=== PATIENT | female | born 1945 | race Caucasian/White ===

== ENCOUNTER 2019-05-01 14:17 | Observation (INO) ==
[2019-05-01] MEDS ORDERED: Aspirin 81 MG TAB.CHEW PO ONE (14:25)
[2019-05-01] MEDS ORDERED: Isovue-370 500 ML BOTTLE IVP ONE (14:25)
[2019-05-01] MEDS ORDERED: Nitroglycerin 0.4 MG TAB.SUBL SL PRN ×2 (14:25→17:25)
[2019-05-01] MEDS ORDERED: HydrOXYzine 100 MG/2 ML VIAL IM ONE (14:51)
[2019-05-01 15:35] LABS: Basophils % 0.5 %; Eosinophils # 0.1 K/mcL (0.0-0.6); Eosinophils % 1.7 %; Hematocrit 43.5 % (35.3-44.9); Hemoglobin 13.3 g/dL (11.5-15.4); Immature Granulocytes % 0.2 % (0-4); Lymphocytes # 2.9 K/mcL (0.6-4.6); Lymphocytes % 35.5 %; Mean Corpuscular HGB Conc 30.6 g/dL (31.6-35.5); Mean Corpuscular Hemoglobin 27.9 pg (28.0-33.3); Mean Corpuscular Volume 91.2 fL (83.0-100.0); Mean Platelet Volume 10.3 fL (9.4-12.4); Monocytes # 0.6 K/mcL (0.0-1.3); Monocytes % 7.3 %; Neutrophils # 4.5 K/mcL (1.6-8.9); Platelet Count 311 K/mcL (140-400); Red Blood Count 4.77 M/mcL (3.82-4.97); Red Cell Distribution Width 13.1 % (11.5-14.5); Segmented Neutrophils % 54.8 %; White Blood Count 8.1 K/mcL (4.3-11.1)
[2019-05-01 15:55] LABS: BUN/Creatinine Ratio 14 (6-26); Blood Urea Nitrogen 9 mg/dL (8-23); Calcium 9.4 mg/dL (8.6-10.3); Carbon Dioxide 28 mEq/L (23-29); Chloride 105 mEq/L (98-107); Glucose 96 mg/dL (70-105); Osmolality,Calculated 287 (280-300); Sodium 139 mEq/L (136-145); eGFR For African Americans > 60 (> 60); eGFR For Non-African Americans > 60 (> 60)
[2019-05-01 15:56] LABS: Troponin I < 0.03 ng/mL (< 0.04)
[2019-05-01] MEDS ORDERED: Naloxone 0.4 MG/ML INJ IVP PRN (17:22)
[2019-05-01] MEDS ORDERED: Ondansetron 4 MG/2 ML VIAL IVP PRN (17:22)
[2019-05-01] MEDS ORDERED: SUBOXONE PO SCH (17:45)
[2019-05-01] MEDS: *HR* Heparin 5,000 UNIT/ML VIAL SQ SCH (20:22)
[2019-05-01] MEDS: Doxycycline 100 MG in 0.9 % Sodium Chloride Mini Bag 100 ML IVPB SCH (20:23)
[2019-05-01] MEDS: Nicotine 21 MG PATCH.TD24 TD SCH (20:31)
[2019-05-01] MEDS ORDERED: Melatonin 3 MG TABLET PO ONE (20:45)
[2019-05-02] MEDS: hydrOXYzine pamoate 25 MG CAPSULE PO PRN ×2 (00:09→09:21)
[2019-05-02 01:44] LABS: Basophils % 0.4 %; Eosinophils # 0.2 K/mcL (0.0-0.6); Eosinophils % 2.6 %; Hematocrit 40.1 % (35.3-44.9); Hemoglobin 12.2 g/dL (11.5-15.4); Immature Granulocytes % 0.1 % (0-4); Lymphocytes # 3.1 K/mcL (0.6-4.6); Lymphocytes % 41.5 %; Mean Corpuscular HGB Conc 30.4 g/dL (31.6-35.5); Mean Corpuscular Hemoglobin 28.6 pg (28.0-33.3); Mean Corpuscular Volume 94.1 fL (83.0-100.0); Mean Platelet Volume 10.5 fL (9.4-12.4); Monocytes # 0.6 K/mcL (0.0-1.3); Monocytes % 8.5 %; Neutrophils # 3.5 K/mcL (1.6-8.9); Platelet Count 270 K/mcL (140-400); Red Blood Count 4.26 M/mcL (3.82-4.97); Red Cell Distribution Width 13.3 % (11.5-14.5); Segmented Neutrophils % 46.9 %; White Blood Count 7.4 K/mcL (4.3-11.1)
[2019-05-02 01:51] LABS: BUN/Creatinine Ratio 17 (6-26); Blood Urea Nitrogen 13 mg/dL (8-23); Calcium 8.8 mg/dL (8.6-10.3); Carbon Dioxide 30 mEq/L (23-29); Chloride 105 mEq/L (98-107); Glucose 103 mg/dL (70-105); Osmolality,Calculated 292 (280-300); Potassium 3.6 mEq/L (3.5-5.1); Sodium 141 mEq/L (136-145); eGFR For African Americans > 60 (> 60); eGFR For Non-African Americans > 60 (> 60)
[2019-05-02] MEDS: *HR* Heparin 5,000 UNIT/ML VIAL SQ SCH (05:30)
[2019-05-02] MEDS: Doxycycline 100 MG in 0.9 % Sodium Chloride Mini Bag 100 ML IVPB SCH (05:31)
[2019-05-02] MEDS ORDERED: carvediloL 6.25 MG TABLET PO SCH (08:00)
[2019-05-02] MEDS ORDERED: Aspirin 81 MG TAB.CHEW PO SCH (09:00)
[2019-05-02] MEDS: Nicotine 21 MG PATCH.TD24 TD SCH (09:22)
[2019-05-02 10:43] VITALS: BP 109/65
== END 2019-05-02 11:52 | disposition home or self-care (01) ==
LOC: EMEROOARM 14:17 → 3BNU 14:17 → SUATTDRO 18:44 → 3BNU 19:32
PROVIDERS: ADMIT Internal Medicine; ATTEND Internal Medicine